=== PATIENT | female | born 1990 | race Caucasian/White ===

== ENCOUNTER 2017-10-04 12:50 | Inpatient (IN) | payer BC ==
[2017-10-04] MEDS ORDERED: Nalbuphine 20 MG/1 ML Amp IVPUSH PRN (14:02)
[2017-10-04] MEDS ORDERED: Lidocaine 1% 50 ML MDV INJECT ONE (14:02)
[2017-10-04] MEDS ORDERED: Ondansetron 4 MG/2 ML SDV IVPUSH PRN (14:02)
[2017-10-04] MEDS ORDERED: Sodium Chloride 0.9% 10 ML Syringe FLUSH PRN (14:02)
--- NOTE | 2017-10-04 14:14 | PCM.LDHP ---
L&D History of Present Illness - General Date of Service: 10/04/17 Admit Problem/Dx: Patient Status Order with Admit Dx/Problem 10/04/17 14:02 Patient Status [ADT] Routine Admission Diagnosis/Problem Admission Diagnosis/Problem Normal Source of Information: Patient History Limitations: Reports: No Limitations - History of Present Illness Introduction:: Caridad Gomez is a pleasant 27 year old with an SAMM of 09/30/17 and an estimated EGA of 40 weeks and 4 days who presents to labor and delivery with contractions occurring every 5 minutes that last approximately 1 minute in duration. She reports these contractions started at 0100 and with the onset of contractions she began to experience lower back and abdominal discomfort. She denies any radiation of the discomfort and reports the pain and pressure as mild. She denies any bloody show or fluid leakage from the vagina. Her blood type is AB negative and her antibody testing completed on 07/15/17 was found to be negative. She is rubella immune and GBS negative. She desires to have an all natural Timing/Duration: Reports: seconds: Location, : Reports: Abdomen, Lower back Quality: Reports: Dull, Pressure Severity: Mild Improves with: Reports: None Worsens with: Reports: None - Related Data Allergies/Adverse Reactions: Allergies Allergy/AdvReac Type Severity Reaction Status Date / Time No Known Allergies Allergy Verified 12/30/15 19:14 Home Medications: Home Meds Vit #105/Iron/FA/Dha [Prena1 True Combo Pack] 1 each PO 12/30/15 [ History] Doxylamine Succinate [Unisom Sleep Aid] 25 mg PO BEDTIME PRN 10/04/17 [History] Past Medical History - Past Health History Medical/Surgical History: Denies 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: Reports: Polycystic Ovaries, : 1 Para: 2 LMP (Approximate): > 3 Months Social & Family History - Family History Family Medical History: Noncontributory Endocrine/Metabolic: Reports: Other (See Below) (Maternal grandmother was diagnosed with diabetes) - Tobacco Use Smoking Status *Q: Never Smoker Second Hand Smoke Exposure: No - Caffeine Use Caffeine Use: Reports: None - Recreational Drug Use Recreational Drug Use: No H&P Review of Systems - Review of Systems: Review Of Systems: See Below General: Reports: Fatigue Pulmonary: Reports: No Symptoms Cardiovascular: Reports: No Symptoms Gastrointestinal: Reports: Abdominal Pain Genitourinary: Reports: No Symptoms Musculoskeletal: Reports: Back Pain Psychiatric: Reports: No Symptoms L&D Exam - Exam Exam: See Below - Vital Signs Weight: 161 lb - OB Specific Fundal Height In cm: 40 Contraction Duration (sec): 60 Contraction Frequency (min): 5 Movement: Active Heart Tones: Present Heart Tones per Min: 145 Heart Rate (FHR) Variability: Moderate (6-25 bmp) Presentation: Vertex - Foy Score Foy Score Effacement: >80% Foy Score Dilation: > 5 cm - Exam General: Alert, Oriented HEENT: Conjunctiva Clear, EOMI, Hearing Intact, Mucosa Moist & [place], Pupils Equal, Pupils Reactive Lungs: Clear to Auscultation, Normal Respiratory Effort Cardiovascular: Regular Rate, Regular Rhythm GI/Abdominal Exam: Normal Bowel Sounds, Soft, Non-Tender, No Organomegaly, No Distention Extremities: Normal Inspection, No Pedal Edema Skin: Warm, Dry DTR: 2+: Bicep (L), Bicep (R), Patella (L), Patella (R) Psychiatric: Alert, Normal Affect, Normal Mood Problem List Initiated/Reviewed/Updated: Yes Orders Last 24hrs: Active Orders 24 hr Category Date Time Status Patient Status [ADT] Routine ADT 10/04/17 14:02 Active Activity as Tolerated [RC] PFP Care 10/04/17 14:02 Active Communication Order [RC] ASDIRECTED Care 10/04/17 14:02 Active Heart Tones [RC] ASDIRECTED Care 10/04/17 14:03 Active Notify Provider [RC] PFP Care 10/04/17 14:02 Active Notify Provider [RC] PRN Care 10/04/17 14:02 Active Peripheral IV Care [RC] . DIRECTED Care 10/04/17 14:03 Active Vital Signs [RC] PER UNIT ROUTINE Care 10/04/17 14:02 Active Regular Diet [DIET] Diet 10/04/17 Lunch Active Lactated Ringers [Ringers, Lactated] 1,000 ml Med 10/04/17 14:15 Ordered IV ASDIRECTED Lidocaine 1% [Xylocaine 1%] Med 10/04/17 14:02 Once 10 ml INJECT ONETIME ONE Nalbuphine [Nubain] Med 10/04/17 14:02 Ordered 10 mg IVPUSH Q2H PRN Ondansetron [Zofran] Med 10/04/17 14:02 Ordered 4 mg IVPUSH Q4H PRN Oxytocin/Lactated Ringers [Pitocin in LR 10 Units/1,000 Med 10/04/17 14:15 Ordered ML] 10 unit in 1,000 ml IV .CONTINUOUS Sodium Chloride 0.9% [Saline Flush] Med 10/04/17 14:02 Ordered 10 ml FLUSH ASDIRECTED PRN Electronic Heart Tones Ext w TOCO [WOMSER] Oth 10/04/17 14:02 Ordered Routine Electronic Heart Tones Internal [WOMSER] Per Unit Oth 10/04/17 14:02 Ordered Routine Peripheral IV Insertion Adult [OM.PC] Routine Oth 10/04/17 14:02 Ordered Resuscitation Status Routine Resus Stat 10/04/17 14:02 Ordered Medication Orders Lactated Ringer's (Ringers, Lactated) 1,000 mls @ 100 mls/hr IV ASDIRECTED TATE Oxytocin/Lactated Ringer's (Pitocin In Lr 10 Units/1,000 Ml) 10 unit in 1,000 mls @ 100 mls/hr IV .CONTINUOUS TATE Lidocaine HCl (Xylocaine 1%) 10 ml INJECT ONETIME ONE Stop: 10/04/17 14:03 Nalbuphine HCl (Nubain) 10 mg IVPUSH Q2H PRN PRN Reason: Pain (moderate 4-6) Ondansetron HCl (Zofran) 4 mg IVPUSH Q4H PRN PRN Reason: Nausea/Vomiting Sodium Chloride (Saline Flush) 10 ml FLUSH ASDIRECTED PRN PRN Reason: Keep Vein Open Assessment/Plan Comment:: Assessment: 1. 40 4/7 week active labor with cervical dilation 2. Group B strep screen is negative 3. Plans to breast feed 4. Desires natural labor 5.Rubella immune Plan: 1.Anticipate normal spontaneous vaginal deliver 2. Support nursing decision 3. Natural labor
[2017-10-04] MEDS ORDERED: Lactated Ringers 1,000 ML IV SCH (14:15)
[2017-10-04] MEDS ORDERED: Oxytocin/Lactated Ringers 10 UNIT/1,000 ML BAG IV SCH (14:15)
--- NOTE | 2017-10-04 15:46 | PCM.SN ---
- Free Text/Narrative Note: Caridad is a 26-year-old 2 now para 2002 white female who is admitted in active labor with advanced cervical dilation on the afternoon of 10/04/2017. She is 40-4/7 weeks gestational age with an SAMM of 09/30/2016.. She began having contractions at approximately 0830 hrs. this a.m. This was followed by bloody show. On admission she was 6-7 cm dilated, bulging bag of su and heart tones were reassuring. She is alexander every 3-5 minutes. She progressed to complete cervical dilation by approximately 1430 hrs. She delivered a viable, ellington, male with Apgars of 9 and 9, weight of 3400 g (7 pounds 7.9 ounces) in a right occiput anterior position over an intact perineum at 1459 hrs. on 10/04/2017. Baby's name is [place]. Cord blood was obtained. The placenta delivered intact, in a Chana presentation , appeared complete and was discarded per patient desire. It had a three-vessel cord. Estimated blood loss was 100 mL. Condition: Good. Patient plans to breast- feed.
[2017-10-04] MEDS ORDERED: Benzocaine/Menthol 20%-0.5% Spray 56 GM Canister TOP PRN (16:05)
[2017-10-04] MEDS ORDERED: Acetaminophen 325 MG Tab PO PRN (16:05)
[2017-10-04] MEDS ORDERED: Ibuprofen 600 MG Tab PO PRN (16:05)
[2017-10-04] MEDS ORDERED: Lanolin 100% Cream 7 GM Tube TOP PRN (16:05)
[2017-10-04] MEDS ORDERED: Witch Hazel Medicated Pads 100/Jar TOP PRN (16:05)
[2017-10-04] MEDS ORDERED: Docusate Sodium 100 MG Cap PO PRN (16:05)
--- NOTE | 2017-10-05 08:16 | PCM.PNPP ---
- General Info Date of Service: 10/05/17 Admission Dx/Problem (Free Text): Subjective: Patient reports her pain is well controlled this AM. She is able to void and ambulate without assistance. Objective: Patient is afebrile, vital signs are stable and the uterus is slightly below the level of the umbilicus Assessment: Post day 1 Plan: Routine care will be provided and a Hgb level will be taken later today. Functional Status: Reports: Pain Controlled - Patient Data Vital Signs - Most Recent: Last Vital Signs Temp 97.7 F 10/05/17 03:59 Pulse 89 10/05/17 03:59 Resp 15 10/05/17 03:59 BP 110/78 10/05/17 03:59 Pulse Ox 97 10/05/17 03:59 Weight - Most Recent: 161 lb I&O - Last 24 Hours: Intake & Output 10/04/17 10/05/17 10/05/17 22:59 06:59 14:59 Intake Total 620 2 Balance 620 2 Lab Results - Last 24 Hours: Laboratory Results - last 24 hr 10/04/17 Range/Units 21:05 Blood Type AB NEGATIVE Gel Antibody Screen Positive Screen 0 ros/5 flds - neg RhIG Candidate? Yes Rhogam Indicated Yes, baby rh pos H Med Orders - Current: Current Medications Acetaminophen (Tylenol) 650 mg PO Q4H PRN PRN Reason: mild pain or fever Benzocaine/Menthol (Dermoplast Pain Relief [place]) 0 gm TOP ASDIRECTED PRN PRN Reason: Perineal Comfort Measure Last Admin: 10/04/17 20:49 Dose: 1 canister Docusate Sodium (Colace) 100 mg PO BID PRN PRN Reason: Constipation Emollient Ointment (Lansinoh Hpa) 0 gm TOP ASDIRECTED PRN PRN Reason: Sore Nipples Last Admin: 10/04/17 20:49 Dose: 1 tube Ibuprofen (Motrin) 600 mg PO Q4H PRN PRN Reason: Mild pain or fever Prenat Multivit/[place]/Iron/Folic Ac ( Plus Iron) 1 each PO DAILY TATE Jermaine Moeel (Tucks) 1 pad TOP ASDIRECTED PRN PRN Reason: Hemorrhoid pain Last Admin: 10/04/17 20:48 Dose: 1 tub Discontinued Medications Lactated Ringer's (Ringers, Lactated) 1,000 mls @ 100 mls/hr IV ASDIRECTED TATE Oxytocin/Lactated Ringer's (Pitocin In Lr 10 Units/1,000 Ml) 10 unit in 1,000 mls @ 100 mls/hr IV .CONTINUOUS TATE Last Admin: 10/04/17 15:00 Dose: 100 mls/hr Lidocaine HCl (Xylocaine 1%) 10 ml INJECT ONETIME ONE Stop: 10/04/17 14:03 Nalbuphine HCl (Nubain) 10 mg IVPUSH Q2H PRN PRN Reason: Pain (moderate 4-6) Ondansetron HCl (Zofran) 4 mg IVPUSH Q4H PRN PRN Reason: Nausea/Vomiting Sodium Chloride (Saline Flush) 10 ml FLUSH ASDIRECTED PRN PRN Reason: Keep Vein Open - Interaction Support Person: - Recovery Exam Fundal Tone: Firm Fundal Level: 1 Fingerbreadths Below Umbilicus Fundal Placement: Midline Lochia Amount: Small Lochia Color: Rubra/Red Perineum Description: Intact, Minimal Bruising/Swelling Episiotomy/Laceration: None Bladder Status: Nonpalpable Urinary Elimination: Voided - Plan Plan:: Assessment: 1. 40 4/7 week active labor with cervical dilation 2. Group B strep screen is negative 3. Plans to breast feed 4. Desires natural labor 5.Rubella immune Plan: 1.Anticipate normal spontaneous vaginal deliver 2. Support nursing decision 3. Natural labor
[2017-10-05] MEDS ORDERED: Prenatal Multivitamin with Calcium/Folic Acid/Iron Tab PO SCH (09:00)
[2017-10-05 12:34] VITALS: BP 119/79
--- NOTE | 2017-10-05 12:57 | PCM.DCSUM1 ---
Discharge Summary - Hospital Course Free Text/Narrative:: Caridad is a 26-year-old 2 now para 2002 white female who is admitted in active labor with advanced cervical dilation on the afternoon of 10/04/2017. She is 40-4/7 weeks gestational age with an SAMM of 09/30/2016.. She began having contractions at approximately 0830 hrs. this a.m. This was followed by bloody show. On admission she was 6-7 cm dilated, bulging bag of su and heart tones were reassuring. She is alexander every 3-5 minutes. She progressed to complete cervical dilation by approximately 1430 hrs. She delivered a viable, ellington, male with Apgars of 9 and 9, weight of 3400 g (7 pounds 7.9 ounces) in a right occiput anterior position over an intact perineum at 1459 hrs. on 10/04/2017. Baby's name is [place]. Cord blood was obtained. The placenta delivered intact, in a Chana presentation , appeared complete and was discarded per patient desire. It had a three-vessel cord. Estimated blood loss was 100 mL. Condition: Good. Patient plans to breast- feed. Postburn patient has done well. She is ambulatory well, voiding well and is having no concerns. She is desiring discharge after 24 hours of the time of delivery. - Discharge Data Discharge Date: 10/05/17 Discharge Disposition: Home, Self-Care 01 Preliminary Cause of *Q: Respiratory Failure Condition: Good - Patient Instructions Diet: Regular Diet as Tolerated (Nursing diet with increase calories and calcium as directed) Activity: As Tolerated (No intercourse or tampons until bleeding resolves) Driving: May Drive Today Showering/Bathing: May Shower (May take a bath) - Discharge Plan Home Medications: Home Meds Vit #105/Iron/FA/Dha [Prena1 True Combo Pack] 1 each PO DAILY 12/30/15 [History] Doxylamine Succinate [Unisom Sleep Aid] 25 mg PO BEDTIME PRN 10/04/17 [History] Acetaminophen [Tylenol] 650 mg PO Q4H PRN tablet 10/05/17 [Rx] Ibuprofen [IJD: Ibuprofen] 600 mg PO Q4H PRN tablet 10/05/17 [Rx] Patient Handouts: Vaginal Delivery, Care After, Challenges and Solutions Referrals: Aishwarya No MD [Primary Care Provider] - (Patient is to call clinic to set up an appointment with Dr. No.) - Discharge Summary/Plan Comment DC Time >30 min.: No Discharge Summary/Plan Comment: Discharge instructions: 1. Discharge home 2. Diet, activity and follow-up discussed with patient. Recommend nursing diet with increased calories and calcium. 3. Precautions given concern increased pain, bleeding, temperature, signs/ symptoms of DVT/PE. 4. Medications per home medication was printed, discussed with and given to the patient. 5. Return to clinic-Dr. No at [facility]-is to call for an appointment. Diagnosis: Term -delivered Condition: Good - Patient Data Vitals - Most Recent: Last Vital Signs Temp 36.7 C 10/05/17 12:09 Pulse 71 10/05/17 12:09 Resp 14 10/05/17 12:09 BP 119/79 10/05/17 12:09 Pulse Ox 97 10/05/17 12:09 Weight - Most Recent: 73.028 kg I&O - Last 24 hours: Intake & Output 10/04/17 10/05/17 10/05/17 22:59 06:59 14:59 Intake Total 620 2 Balance 620 2 Lab Results - Last 24 hrs: Laboratory Results - last 24 hr 10/04/17 Range/Units 21:05 Blood Type AB NEGATIVE Gel Antibody Screen Positive Screen 0 ros/5 flds - neg RhIG Candidate? Yes Rhogam Indicated Yes, baby rh pos H Med Orders - Current: Current Medications Acetaminophen (Tylenol) 650 mg PO Q4H PRN PRN Reason: mild pain or fever Benzocaine/Menthol (Dermoplast Pain Relief [place]) 0 gm TOP ASDIRECTED PRN PRN Reason: Perineal Comfort Measure Last Admin: 10/04/17 20:49 Dose: 1 canister Docusate Sodium (Colace) 100 mg PO BID PRN PRN Reason: Constipation Emollient Ointment (Lansinoh Hpa) 0 gm TOP ASDIRECTED PRN PRN Reason: Sore Nipples Last Admin: 10/04/17 20:49 Dose: 1 tube Ibuprofen (Motrin) 600 mg PO Q4H PRN PRN Reason: Mild pain or fever Prenat Multivit/Central Control Room Operator/Iron/Folic Ac ( Plus Iron) 1 each PO DAILY TATE Last Admin: 10/05/17 09:29 Dose: 1 each Witch Prudence (Tucks) 1 pad TOP ASDIRECTED PRN PRN Reason: Hemorrhoid pain Last Admin: 10/04/17 20:48 Dose: 1 tub Discontinued Medications Lactated Ringer's (Ringers, Lactated) 1,000 mls @ 100 mls/hr IV ASDIRECTED TATE Oxytocin/Lactated Ringer's (Pitocin In Lr 10 Units/1,000 Ml) 10 unit in 1,000 mls @ 100 mls/hr IV .CONTINUOUS TATE Last Admin: 10/04/17 15:00 Dose: 100 mls/hr Lidocaine HCl (Xylocaine 1%) 10 ml INJECT ONETIME ONE Stop: 10/04/17 14:03 Last Admin: 10/05/17 09:07 Dose: Not Given Nalbuphine HCl (Nubain) 10 mg IVPUSH Q2H PRN PRN Reason: Pain (moderate 4-6) Ondansetron HCl (Zofran) 4 mg IVPUSH Q4H PRN PRN Reason: Nausea/Vomiting Sodium Chloride (Saline Flush) 10 ml FLUSH ASDIRECTED PRN PRN Reason: Keep Vein Open *Q Meaningful Use (DIS) - VTE *Q VTE Criteria *Q: - Stroke *Q Stroke Criteria *Q: - AMI *Q AMI Criteria *Q:
== END 2017-10-05 16:20 | disposition home or self-care (01) | DRG 560 ==
LOC: JD.OB 12:50 → JD.OBCHECK 12:50 → JD.OB 14:02 → OBSVTOIN 14:59 → JD.OB 17:00
PROVIDERS: ADMIT Obstetrics & Gynecology; ATTEND Obstetrics & Gynecology
PROC: 10E0XZZ Delivery of Products of Conception, External Approach (ICD-10-PCS; principal; 2017-10-04)
PROC: 10907ZC Drainage of Amniotic Fluid, Therapeutic from Products of Conception, Via Natural or Artificial Opening (ICD-10-PCS; 2017-10-04)
DX: O69.81X0 Labor and delivery complicated by cord around neck, without compression, not applicable or unspecified (principal); Z3A.40 40 weeks gestation of pregnancy; Z37.0 Single live birth
CPT/HCPCS: 36415; 59409; 85027; A9270-GY; J2590; J2790

== ENCOUNTER 2020-06-04 11:21 | Inpatient (IN) | payer BC ==
[2020-06-04] MEDS ORDERED: Nalbuphine 10 MG/1 ML Vial IVPUSH PRN (11:53)
[2020-06-04] MEDS ORDERED: Sodium Chloride 0.9% 10 ML Syringe FLUSH PRN (11:53)
[2020-06-04] MEDS ORDERED: Acetaminophen 325 MG Tab PO PRN ×2 (11:53→12:34)
[2020-06-04] MEDS ORDERED: Lidocaine 1% 50 ML MDV INJECT ONE (11:53)
[2020-06-04] MEDS ORDERED: Ampicillin 2 GM in Sodium Chloride 0.9% 100 ML IV ONE (11:53)
[2020-06-04] MEDS ORDERED: Lactated Ringers 1,000 ML IV SCH (12:00)
[2020-06-04] MEDS ORDERED: Oxytocin/Lactated Ringers 10 UNIT/1,000 ML BAG IV SCH ×2 (12:00→12:34)
[2020-06-04] MEDS ORDERED: Ibuprofen 600 MG Tab PO PRN (12:34)
[2020-06-04] MEDS ORDERED: Hydrocortisone Acetate 25 MG Supp RECTAL PRN (12:34)
[2020-06-04] MEDS ORDERED: Benzocaine/Menthol 20%-0.5% Spray 56 GM Canister TOP PRN (12:34)
[2020-06-04] MEDS ORDERED: Witch Hazel Medicated Pads 40/Jar TOP PRN (12:34)
[2020-06-04] MEDS ORDERED: Docusate Sodium 100 MG Cap PO PRN (12:34)
[2020-06-04] MEDS ORDERED: Magnesium Hydroxide 400 MG/5 ML Susp 30 ML Cup PO PRN (12:34)
--- NOTE | 2020-06-04 12:34 | PCM.LDHP ---
L&D History of Present Illness - General Date of Service: 06/04/20 Admit Problem/Dx: Patient Status Order with Admit Dx/Problem 06/04/20 11:33 Patient Status [ADT] Routine 06/04/20 12:21 Patient Status [ADT] Routine Admission Diagnosis/Problem Admission Diagnosis/Problem Vaginal delivery Source of Information: Patient History Limitations: Reports: No Limitations - History of Present Illness Introduction:: Caridad Gomez is a 29-year-old G3 now P3 003 female who had presented to labor and delivery and advanced labor with cervix at 8 to 9 cm on arrival. She reported that her contractions started at around 5 AM this morning, 06/04/2020, but were more spread apart at that time. They became much more intense and frequent at around 10 AM. She decided to come to labor and delivery at that time. She denies any leaking of fluid or vaginal bleeding at home. She had a spontaneous rupture membranes while she was on labor and delivery. She reported good movement prior to arriving to the hospital. Timing/Duration: Reports: sudden onset (at around 5 AM), getting worse (at around 10 AM) Location, : Reports: Abdomen, Lower back, Pelvic Quality: Reports: Pressure, Throbbing Severity: Severe Improves with: Reports: None Associated Symptoms: Denies: vaginal bleeding, vaginal discharge, vaginal fluid Present Illness Comments:: Caridad Gomez is a 29-year-old G3 now P3-0-0-3 female who presented to labor and delivery in advanced labor and had normal spontaneous vaginal delivery prior to my arrival. She had routine care with Dr. White starting at 9 weeks gestational age. She did not have any significant complications during the . She received RhoGam at 28 weeks gestational age. She was GBS positive and declined any antibiotics. 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 G1: 12/31/2015, , 38 weeks 4 days, 3430 g, 7 pounds 9 ounces, female infant, no complications G2: 10/04/2017, , 40 weeks 4 days, 3402 g, 7 pounds 8 ounces, male , no complications G3: Current labs Blood type: AB- Antibody screen: Negative First trimester hematocrit/hemoglobin: 39.8%/13.6 on 11/01/2019 Platelets: 231 on 11/01/2019 Urine culture: Mixed jamil suggestive of contamination Rubella status: Immune Hepatitis B surface antigen: Negative RPR: Negative HIV: Negative Pap smear: ASCUS with negative HPV Gonorrhea: Negative Chlamydia: Negative One hour glucose tolerance test: 99 Second trimester hemoglobin: 12.7 on 03/07/2020 Platelets: 229 on 03/07/2020 GBS status: Positive - Related Data Allergies/Adverse Reactions: Allergies Allergy/AdvReac Type Severity Reaction Status Date / Time No Known Allergies Allergy Verified 12/30/15 19:14 Home Medications: Home Meds 105/Iron/Folic AC/Dha [Prena1 True Combo Pack] 1 each PO DAILY 12/30/15 [History] Doxylamine Succinate [Unisom Sleep Aid] 25 mg PO BEDTIME PRN 10/04/17 [History] Acetaminophen [Tylenol] 650 mg PO Q4H PRN tablet 10/05/17 [Rx] Ibuprofen [IJD: Ibuprofen] 600 mg PO Q4H PRN tablet 10/05/17 [Rx] Past Medical History - Past Health History Medical/Surgical History: Denies Medical/Surgical History 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: Reports: Polycystic Ovaries, : 3 Para: 3 Social & Family History - Family History Family Medical History: No Pertinent Family History Endocrine/Metabolic: Reports: Other (See Below) (Maternal grandmother was diagnosed with diabetes) - Tobacco Use Tobacco Use Status *Q: Never Tobacco User - Tobacco Core Measures Tobacco Use/Smoking Within Last 30 Days: No Smokeless Tobacco Use in Last 30 Days: No - Caffeine Use Caffeine Use: Reports: None - Alcohol Use Alcohol Use History: No - Recreational Drug Use Recreational Drug Use: No Drug Use in Last 12 Months: No - Living Situation & Occupation Living situation: Reports: , with Spouse, with Family H&P Review of Systems - Review of Systems: Review Of Systems: See Below General: Denies: Fever, Chills, Malaise, Weakness HEENT: Denies: Headaches, Rhinitis, Post Nasal Drip, Sinus Congestion, Sore Throat, Visual Changes Pulmonary: Denies: Shortness of Breath, Wheezing, Pleuritic Chest Pain, Cough Cardiovascular: Denies: Chest Pain, Palpitations, Dyspnea on Exertion, Orthopnea Gastrointestinal: Reports: Nausea (while in labor). Denies: Abdominal Pain, Constipation, Diarrhea, Vomiting Genitourinary: Denies: Dysuria, Frequency, Burning, Pain, Urgency Musculoskeletal: Reports: Back Pain (and hip pain of ) Skin: Denies: Rash, Lesions Psychiatric: Denies: Depression, Anxiety Neurological: Denies: Syncope L&D Exam - Exam Exam: See Below - Vital Signs Weight: 71.214 kg - Exam General: Alert, Oriented HEENT: Conjunctiva Clear, EOMI Neck: Supple, Trachea Midline Lungs: Clear to Auscultation, Normal Respiratory Effort Cardiovascular: Regular Rate, Regular Rhythm GI/Abdominal Exam: Soft, Non-Tender, No Distention, Other (Uterine fundus at umbilicus). No: Guarding, Rigid, Rebound Genitourinary: Normal external exam, Vaginal tears (small first degree midline perineal laceration, hemostatic and not repaired), Other (Umbilical cord coming from vaginal opening after delivery of by nursing staff and cutting umbilical cord.) Extremities: Normal Inspection, No Pedal Edema Skin: Warm, Dry, Intact Psychiatric: Alert, Normal Affect, Normal Mood - Problem List (1) 40 weeks gestation of SNOMED Code(s): 85650203 ICD Code: Z3A.40 - 40 WEEKS GESTATION OF Status: Acute Current Visit: Yes (2) GBS (group B Streptococcus carrier), +RV culture, currently SNOMED Code(s): 3426276465537, 735422336, 4031859028306 ICD Code: O99.820 - STREPTOCOCCUS B CARRIER STATE COMPLICATING Status: Acute Current Visit: Yes (3) Polycystic ovarian syndrome SNOMED Code(s): 857141924 ICD Code: E28.2 - POLYCYSTIC OVARIAN SYNDROME Status: Acute Current Visit: Yes (4) Vaginal delivery SNOMED Code(s): 153379891 ICD Code: O80 - ENCOUNTER FOR FULL-TERM UNCOMPLICATED DELIVERY Status: Acute Current Visit: Yes (5) First degree perineal laceration during delivery SNOMED Code(s): 210076237 ICD Code: O70.0 - FIRST DEGREE PERINEAL LACERATION DURING DELIVERY Status: Acute Current Visit: Yes Problem List Initiated/Reviewed/Updated: Yes Orders Last 24hrs: Active Orders 24 hr Category Date Time Status Patient Status Manage Transfer [TRANSFER] Routine ADT 06/04/20 12:24 Ordered Patient Status [ADT] Routine ADT 06/04/20 12:21 Active Activity as Tolerated [RC] PFP Care 06/04/20 11:53 Active Communication Order [RC] ASDIRECTED Care 06/04/20 11:53 Active Heart Tones [RC] ASDIRECTED Care 06/04/20 11:53 Active Non Stress Test [RC] PER UNIT ROUTINE Care 06/04/20 11:33 Active Notify Provider [RC] PFP Care 06/04/20 11:53 Active Notify Provider [RC] PRN Care 06/04/20 11:53 Active Peripheral IV Care [RC] . DIRECTED Care 06/04/20 11:53 Active Urinary Catheter Assessment [RC] ASDIRECTED Care 06/04/20 11:53 Active Vital Signs [RC] PER UNIT ROUTINE Care 06/04/20 11:33 Active Regular Diet [DIET] Diet 06/04/20 Dinner Active CBC WITH AUTO DIFF [HEME] Stat Lab 06/04/20 11:53 Ordered CORONAVIRUS COVID-19 PATTIE [MOLEC] Stat Lab 06/04/20 11:58 Ordered RAPID PLASMA REAGIN,RPR [CHEM] Routine Lab 06/04/20 11:53 Ordered Acetaminophen [TylenoL] Med 06/04/20 11:53 Active 650 mg PO Q4H PRN Ampicillin 1 gm Med 06/04/20 16:00 Active Sodium Chloride 0.9% [Normal Saline] 100 ml IV Q4H Lactated Ringers [Ringers, Lactated] 1,000 ml Med 06/04/20 12:00 Active IV ASDIRECTED Nalbuphine [Nubain] Med 06/04/20 11:53 Active 10 mg IVPUSH Q2H PRN Oxytocin/Lactated Ringers [Pitocin in LR 10 Units/1,000 Med 06/04/20 12:00 Active ML] 10 unit in 1,000 ml IV .CONTINUOUS Sodium Chloride 0.9% [Saline Flush] Med 06/04/20 11:53 Active 10 ml FLUSH ASDIRECTED PRN Electronic Heart Tones Ext w TOCO [WOMSER] Oth 06/04/20 11:53 Ordered Routine Electronic Heart Tones Internal [WOMSER] Per Unit Oth 06/04/20 11:53 Ordered Routine Peripheral IV Insertion Adult [OM.PC] Routine Oth 06/04/20 11:53 Ordered Resuscitation Status Routine Resus Stat 06/04/20 11:33 Ordered Medication Orders Acetaminophen (Tylenol) 650 mg PO Q4H PRN PRN Reason: Pain (Mild 1-3) and fever Lactated Ringer's (Ringers, Lactated) 1,000 mls @ 100 mls/hr IV ASDIRECTED TATE Ampicillin Sodium 1 gm/ Sodium (Chloride) 100 mls @ 200 mls/hr IV Q4H TATE Oxytocin/Lactated Ringer's (Pitocin In Lr 10 Units/1,000 Ml) 10 unit in 1,000 mls @ 100 mls/hr IV .CONTINUOUS TATE Nalbuphine HCl (Nubain) 10 mg IVPUSH Q2H PRN PRN Reason: Pain Sodium Chloride (Saline Flush) 10 ml FLUSH ASDIRECTED PRN PRN Reason: Keep Vein Open Assessment/Plan Comment:: Caridad Gomez is a 29-year-old G3 now P3-0-0-3 status post normal spontaneous vaginal delivery shortly after arrival to labor and delivery, PPD #0, complicated by GBS positive status and did not receive antibiotics as patient declined antibiotics and history of polycystic ovarian syndrome Admit to inpatient following normal spontaneous vaginal delivery Continue Pitocin per unit protocol following delivery of placenta and lactated Ringer's until tolerating regular diet Regular diet Vitals per unit routine Ibuprofen and Tylenol for pain control Assist with breast-feeding as needed Continue to monitor lochia Check blood type and administer RhoGam as indicated. Mother with AB- blood type and would need RhoGam injection if infant has Rh+ blood. Anticipate discharge home on day #2 Juancarlos Rose MD 12:48 PM 06/04/2020
--- NOTE | 2020-06-04 13:00 | PCM.DEL ---
L & D Note - General Info Date of Service: 06/04/20 Mother's Due Date: 05/30/20 - Delivery Note Labor: Spontaneous Delivery Outcome: Livebirth Infant Delivery Method: Spontaneous Vaginal Delivery-Single Infant Delivery Mode: Spontaneous Presentation: Vertex Anesthesia Type: None Episiotomy Type: None Laceration: 1st Degree (midline perineal laceration, hemostatic and not repaired) Placenta: Intact, Spontaneous Cord: 3 Vessels Estimated Blood Loss: 150 Resuscitation Needed: Yes : Suctioned, Bulb Syringe, Stimulated, Warmed, [place] Used, Warmer Used Provider: Juancarlos Rose Score 1 min: 8 Score 5 min: 9 Second Stage Interventions: Reports: Pushing Effectively, Pushing, Pulls Own Legs Back Delivery Comments (Free Text/Narrative):: Stage I: Caridad Gomez was admitted for advanced labor. On admission her cervix was dilated to 8 to 9 cm. She was GBS positive and declined antibiotics. She had spontaneous rupture of membranes with meconium stained fluid. Stage II: On 06/04/2020 she had a normal vaginal delivery performed by the nurse of a live female at 12:04. Apgars of 8 & 9. Weight and length unknown at time of note. Infant was delivered in vertex presentation. The cord was doubly clamped and cut. Infant was taken to the warmer for additional resuscitation. Stage III: She had a spontaneous delivery of an intact placenta in Alessandro presentation. Three vessel cord. She was given pitocin and fundal massage. She had a small first-degree midline perineal laceration that was hemostatic and not repaired. Mom and baby were stable to recovery. EBL of 150 mL. Juancarlos Rose MD 1:00 PM 06/04/2020 - General Info Date of Service: 06/04/20 - Patient Data Weight - Most Recent: 71.214 kg Med Orders - Current: Current Medications Acetaminophen (Tylenol) 650 mg PO Q6H PRN PRN Reason: mild pain or fever Benzocaine/Menthol (Dermoplast Pain Relief [place]) 0 gm TOP ASDIRECTED PRN PRN Reason: Perineal Comfort Measure Docusate Sodium (Colace) 100 mg PO BID PRN PRN Reason: Constipation Hydrocortisone Acetate (Anucort-Hc) 25 mg RECTAL BID PRN PRN Reason: Hemorrhoid pain Oxytocin/Lactated Ringer's (Pitocin In Lr 10 Units/1,000 Ml) 10 unit in 1,000 mls @ 100 mls/hr IV TITRATE TATE; Protocol Ibuprofen (Motrin) 600 mg PO Q6H PRN PRN Reason: Mild pain or fever Magnesium Hydroxide (Milk Of Magnesia) 30 ml PO BEDTIME PRN PRN Reason: Constipation Prenat Multivit/[place]/Iron/Folic Ac ( Plus Iron) 1 each PO DAILY [facility] Jermaine Foss (Tucks) 1 pad TOP ASDIRECTED PRN PRN Reason: Perineal Comfort Measure Discontinued Medications Acetaminophen (Tylenol) 650 mg PO Q4H PRN PRN Reason: Pain (Mild 1-3) and fever Lactated Ringer's (Ringers, Lactated) 1,000 mls @ 100 mls/hr IV ASDIRECTED TATE Ampicillin Sodium 2 gm/ Sodium (Chloride) 100 mls @ 200 mls/hr IV ONETIME ONE Stop: 06/04/20 12:22 Ampicillin Sodium 1 gm/ Sodium (Chloride) 100 mls @ 200 mls/hr IV Q4H TATE Oxytocin/Lactated Ringer's (Pitocin In Lr 10 Units/1,000 Ml) 10 unit in 1,000 mls @ 100 mls/hr IV .CONTINUOUS TATE Lidocaine HCl (Xylocaine 1%) 50 ml INJECT ONETIME ONE Stop: 06/04/20 11:54 Nalbuphine HCl (Nubain) 10 mg IVPUSH Q2H PRN PRN Reason: Pain Sodium Chloride (Saline Flush) 10 ml FLUSH ASDIRECTED PRN PRN Reason: Keep Vein Open - Problem List & Annotations (1) 40 weeks gestation of SNOMED Code(s): 80551457 Code(s): Z3A.40 - 40 WEEKS GESTATION OF Status: Acute Current Visit: Yes (2) GBS (group B Streptococcus carrier), +RV culture, currently SNOMED Code(s): 3336352276664, 740819324, 9625569500676 Code(s): O99.820 - STREPTOCOCCUS B CARRIER STATE COMPLICATING Status: Acute Current Visit: Yes (3) Polycystic ovarian syndrome SNOMED Code(s): 147512533 Code(s): E28.2 - POLYCYSTIC OVARIAN SYNDROME Status: Acute Current Visit: Yes (4) Vaginal delivery SNOMED Code(s): 121204659 Code(s): O80 - ENCOUNTER FOR FULL-TERM UNCOMPLICATED DELIVERY Status: Acute Current Visit: Yes (5) First degree perineal laceration during delivery SNOMED Code(s): 121820487 Code(s): O70.0 - FIRST DEGREE PERINEAL LACERATION DURING DELIVERY Status: Acute Current Visit: Yes - Problem List Review Problem List Initiated/Reviewed/Updated: Yes - My Orders Last 24 Hours: My Active Orders 06/04/20 Lunch Regular Diet [DIET] 06/04/20 11:33 Non Stress Test [RC] PER UNIT ROUTINE Vital Signs [RC] PER UNIT ROUTINE Resuscitation Status Routine 06/04/20 11:53 Activity as Tolerated [RC] PFP Communication Order [RC] ASDIRECTED Heart Tones [RC] ASDIRECTED Notify Provider [RC] PFP Notify Provider [RC] PRN Peripheral IV Care [RC] . DIRECTED Urinary Catheter Assessment [RC] ASDIRECTED CBC WITH AUTO DIFF [HEME] Stat RAPID PLASMA REAGIN,RPR [CHEM] Routine 06/04/20 11:58 CORONAVIRUS COVID-19 PATTIE [MOLEC] Stat 06/04/20 12:34 Acetaminophen [TylenoL] 650 mg PO Q6H PRN Benzocaine/Menthol [Dermoplast Pain Relief [place]] See Dose Instructions TOP ASDIRECTED PRN Docusate Sodium [Colace] 100 mg PO BID PRN Hydrocortisone Acetate [Anucort-HC] 25 mg RECTAL BID PRN Ibuprofen [Motrin] 600 mg PO Q6H PRN Magnesium Hydroxide [Milk of Magnesia] 30 ml PO BEDTIME PRN Oxytocin/Lactated Ringers [Pitocin in LR 10 Units/1,000 ML] 10 unit in 1,000 ml IV TITRATE witch Pia [Tucks] 1 pad TOP ASDIRECTED PRN Heat Therapy [OM.PC] PRN 06/04/20 12:34 Patient Status [ADT] Routine Activity as Tolerated [RC] PER UNIT ROUTINE May Shower [RC] ASDIRECTED Notify Provider Vital Signs [RC] ASDIRECTED Vital Signs [RC] 03,,15, Assess Lochia [WOMSER] Per Unit Routine Assess Uterine Involution [WOMSER] Per Unit Routine Breast Pump [WOMSER] Per Unit Routine Ice Therapy [OM.PC] Per Unit Routine Medication Administration Instruction [OM.PC] Routine Perineal Care [OM.PC] Per Unit Routine Peripheral IV Discontinue [OM.PC] Routine Sitz Bath [OM.PC] Per Unit Routine 06/05/20 09:00 Vit with Ca/FA/Iron [ Plus Iron] 1 each PO DAILY 06/05/20 12:34 Heat Therapy [OM.PC] PRN - Plan Plan:: Caridad Gomez is a 29-year-old G3 now P3-0-0-3 status post normal spontaneous vaginal delivery shortly after arrival to labor and delivery, PPD #0, complicated by GBS positive status and did not receive antibiotics as patient declined antibiotics and history of polycystic ovarian syndrome Admit to inpatient following normal spontaneous vaginal delivery Continue Pitocin per unit protocol following delivery of placenta and lactated Ringer's until tolerating regular diet Regular diet Vitals per unit routine Ibuprofen and Tylenol for pain control Assist with breast-feeding as needed Continue to monitor lochia Check blood type and administer RhoGam as indicated. Mother with AB- blood type and would need RhoGam injection if has Rh+ blood. Anticipate discharge home on day #2 Juancarlos Rose MD 1:00 PM 06/04/2020
[2020-06-04] MEDS ORDERED: Ampicillin 1 GM in Sodium Chloride 0.9% 100 ML IV SCH (16:00)
--- NOTE | 2020-06-05 10:47 | PCM.SN.2 ---
- Free Text/Narrative Note: Post Progress Note PPD #1 Subjective: Doing well overall. Ambulating without difficulty. Lochia minimal. Voiding without difficulty. Tolerating regular diet without nausea or vomiting. Pain controlled with oral medications. Breast-feeding with minimal difficulty. Objective: Vitals: Vital Signs - 24 hr 06/04/20 06/04/20 06/04/20 12:34 18:16 20:34 Temperature 36.7 C 36.4 C Temperature [ 36.9 C Tympanic] Pulse, 101 H 83 Peripheral Pulse, 100 Peripheral [ Pulse Oximetry] Respiratory 18 14 14 Rate Blood Pressure 112/79 123/74 Blood Pressure 123/78 [Right Arm] O2 Sat by Pulse 100 92 L 94 L Oximetry 06/04/20 06/05/20 06/05/20 22:55 03:31 08:22 Temperature 36.4 C 37.0 C 36.1 C Temperature [ Tympanic] Pulse, 73 64 Peripheral Pulse, 83 Peripheral [ Pulse Oximetry] Respiratory 14 14 14 Rate Blood Pressure 106/69 118/69 Blood Pressure 123/74 [Right Arm] O2 Sat by Pulse 94 L 96 Oximetry Physical Exam General: Alert and oriented, no acute distress Lungs: Clear to auscultation bilaterally Heart: Regular rate and rhythm Abdomen: Soft, minimal appropriate tenderness, non-distended, fundus midline, nontender, and 2 fingerbreadths below the umbilicus Extremities: No edema Laboratory Tests 06/04/20 06/04/20 06/04/20 Range/Units 12:09 12:49 12:49 WBC 14.98 H (3.98-10.04) K/mm3 RBC 4.61 (3.98-5.22) M/mm3 Hgb 13.4 (11.2-15.7) gm/dl Hct 41.0 (34.1-44.9) % MCV 88.9 (79.4-94.8) fl MCH 29.1 (25.6-32.2) pg MCHC 32.7 (32.2-35.5) g/dl RDW Std Deviation 43.7 (36.4-46.3) fL Plt Count 204 (182-369) K/mm3 MPV 10.2 (9.4-12.3) fl Neut % (Auto) 87.3 H (34.0-71.1) % Lymph % (Auto) 8.3 L (19.3-51.7) % [place] % (Auto) 4.0 L (4.7-12.5) % Eos % (Auto) 0 L (0.7-5.8) Baso % (Auto) 0.1 (0.1-1.2) % Neut # (Auto) 13.08 H (1.56-6.13) K/mm3 Lymph # (Auto) 1.24 (1.18-3.74) K/mm3 [place] # (Auto) 0.60 H (0.24-0.36) K/mm3 Eos # (Auto) 0.00 L (0.04-0.36) K/mm3 Baso # (Auto) 0.02 (0.01-0.08) K/mm3 RPR Non-reactive (NONREACTIVE) SARS-CoV-2 RNA (PATTIE) Negative (NEGATIVE) Blood Type Gel Antibody Screen Screen RhIG Candidate? Rhogam Indicated 06/04/20 Range/Units 17:30 WBC (3.98-10.04) K/mm3 RBC (3.98-5.22) M/mm3 Hgb (11.2-15.7) gm/dl Hct (34.1-44.9) % MCV (79.4-94.8) fl MCH (25.6-32.2) pg MCHC (32.2-35.5) g/dl RDW Std Deviation (36.4-46.3) fL Plt Count (182-369) K/mm3 MPV (9.4-12.3) fl Neut % (Auto) (34.0-71.1) % Lymph % (Auto) (19.3-51.7) % [place] % (Auto) (4.7-12.5) % Eos % (Auto) (0.7-5.8) Baso % (Auto) (0.1-1.2) % Neut # (Auto) (1.56-6.13) K/mm3 Lymph # (Auto) (1.18-3.74) K/mm3 [place] # (Auto) (0.24-0.36) K/mm3 Eos # (Auto) (0.04-0.36) K/mm3 Baso # (Auto) (0.01-0.08) K/mm3 RPR (NONREACTIVE) SARS-CoV-2 RNA (PATTIE) (NEGATIVE) Blood Type AB NEGATIVE Gel Antibody Screen Positive Screen 0 ros/5 flds - neg RhIG Candidate? Yes Rhogam Indicated Yes, baby rh pos H ASSESSMENT: 29-year-old female -0-0-3 s/p precipitous normal vaginal delivery PPD #1, complicated by GBS positive status and did not receive antibiotics as patient declined antibiotics and history of polycystic ovarian syndrome PLAN: Doing well Breast-feeding with minimal difficulty. Assist as needed Lochia minimal. Continue to monitor for appropriate lochia. Continue routine care Mother with AB- blood type and the with B+ blood type. Patient received RhoGam on PPD #0 Anticipate discharge home tomorrow for additional monitoring of due to GBS infection without patient receiving antibiotics Juancarlos Rose MD 10:46 AM 06/05/2020
[2020-06-05] MEDS: Prenatal Multivitamin with Calcium/Folic Acid/Iron Tab PO SCH (11:17)
--- NOTE | 2020-06-06 07:44 | PCM.SN.2 ---
- Free Text/Narrative Note: Post Progress Note PPD #2 Subjective: Doing well overall. Ambulating without difficulty. Lochia minimal. Voiding without difficulty. Tolerating regular diet without nausea or vomiting. Pain is minimal and not requiring medications at this time. Reports that she is having some mild cramping with breast-feeding but that is tolerable without medications. Breast-feeding with minimal difficulty. Objective: Vitals: Vital Signs - 24 hr 06/05/20 06/05/20 06/05/20 08:22 17:47 20:16 Temperature 36.1 C 37.0 C 36.9 C Pulse, 64 87 60 Peripheral Respiratory 14 14 16 Rate Blood Pressure 118/69 118/82 118/68 O2 Sat by Pulse 96 96 97 Oximetry 06/06/20 02:40 Temperature 36.6 C Pulse, 62 Peripheral Respiratory 14 Rate Blood Pressure 108/61 O2 Sat by Pulse 97 Oximetry Physical Exam General: Alert and oriented, no acute distress Lungs: Clear to auscultation bilaterally Heart: Regular rate and rhythm Abdomen: Soft, minimal appropriate tenderness, non-distended, fundus midline, nontender, and 2 fingerbreadths below the umbilicus Extremities: No edema ASSESSMENT: 29-year-old female -0-0-3 s/p precipitous normal vaginal delivery PPD #2, complicated by GBS positive status and did not receive antibiotics as patient declined antibiotics and history of polycystic ovarian syndrome PLAN: Doing well Breast-feeding with minimal difficulty. Assist as needed Lochia minimal. Continue to monitor for appropriate lochia. Continue routine care Mother with AB- blood type and the with B+ blood type. Patient received RhoGam on PPD #0 Discharge home today Juancarlos Rose MD 7:42 AM 06/06/2020
--- NOTE | 2020-06-06 07:46 | PCM.DCSUM1 ---
Discharge Summary - Hospital Course Free Text/Narrative:: - General Info Date of Service: 06/04/20 Mother's Due Date: 05/30/20 - Delivery Note Labor: Spontaneous Delivery Outcome: Livebirth Infant Delivery Method: Spontaneous Vaginal Delivery-Single Delivery Mode: Spontaneous Presentation: Vertex Anesthesia Type: None Episiotomy Type: None Laceration: 1st Degree (midline perineal laceration, hemostatic and not repaired) Placenta: Intact, Spontaneous Cord: 3 Vessels Estimated Blood Loss: 150 Resuscitation Needed: Yes : Suctioned, Bulb Syringe, Stimulated, Warmed, [place] Used, Warmer Used Provider: Juancarlos Rose Score 1 min: 8 Score 5 min: 9 Second Stage Interventions: Reports: Pushing Effectively, Pushing, Pulls Own Legs Back Delivery Comments (Free Text/Narrative):: Stage I: Caridad Gomez was admitted for advanced labor. On admission her cervix was dilated to 8 to 9 cm. She was GBS positive and declined antibiotics. She had spontaneous rupture of membranes with meconium stained fluid. Stage II: On 06/04/2020 she had a normal vaginal delivery performed by the nurse of a live female at 12:04. Apgars of 8 & 9. Weight and length unknown at time of note. Infant was delivered in vertex presentation. The cord was doubly clamped and cut. was taken to the warmer for additional resuscitation. Stage III: She had a spontaneous delivery of an intact placenta in Alessandro presentation. Three vessel cord. She was given pitocin and fundal massage. She had a small first-degree midline perineal laceration that was hemostatic and not repaired. Mom and baby were stable to recovery. EBL of 150 mL. Diagnosis: Stroke: No - Discharge Data Discharge Date: 06/06/20 Discharge Disposition: Home, Self-Care 01 Condition: Good - Referral to Home Health Primary Care Physician: Aishwarya No MD - Discharge Diagnosis/Problem(s) (1) 40 weeks gestation of SNOMED Code(s): 19912489 ICD Code: Z3A.40 - 40 WEEKS GESTATION OF Status: Acute Current Visit: Yes (2) GBS (group B Streptococcus carrier), +RV culture, currently SNOMED Code(s): 3026961203915, 077361125, 1624702896264 ICD Code: O99.820 - STREPTOCOCCUS B CARRIER STATE COMPLICATING Status: Acute Current Visit: Yes (3) Polycystic ovarian syndrome SNOMED Code(s): 099112096 ICD Code: E28.2 - POLYCYSTIC OVARIAN SYNDROME Status: Acute Current Visit: Yes (4) Vaginal delivery SNOMED Code(s): 484528977 ICD Code: O80 - ENCOUNTER FOR FULL-TERM UNCOMPLICATED DELIVERY Status: Acute Current Visit: Yes (5) First degree perineal laceration during delivery SNOMED Code(s): 092169901 ICD Code: O70.0 - FIRST DEGREE PERINEAL LACERATION DURING DELIVERY Status: Acute Current Visit: Yes - Patient Summary/Data Complications: delivery coordinator due to precipitous labor Consults: None Hospital Course: Craidad Gomez was admitted for advanced labor. On admission her cervix was dil ated to 8-9 cm. She was GBS positive and declined antibiotics. She had spontaneous rupture of membranes with meconium stained fluid. She quickly progressed to complete and began pushing. On 06/04/2020 she had a precipitous normal vaginal delivery of a live female at 12:04. Apgars of 8 and 9. Weight of 3810 g (8 pounds 6.4 ounces). Her course was uneventful. Her pain was well controlled and she had minimal lochia. She was ambulating, tolerating a regular diet and voiding normally. She was breast-feeding with minimal difficulty. She was afebrile and her hematocrit was 41.0 on PPD #0 after delivery. She desired to be discharged home on the morning of PPD #2. Her blood type is AB- and has B+ blood type. Patient received RhoGam on PPD #0. - Patient Instructions Diet: Regular Diet as Tolerated Activity: Apply Ice, As Tolerated Activity, Other: Nothing in the vagina for 6 weeks Driving: May Drive Today Showering/Bathing: May Shower Notify Provider of: Fever, Increased Pain, Swelling and Redness, Drainage, Nausea and/or Vomiting Other/Special Instructions: Please contact your physician's office if you have heavy vaginal bleeding enough to soak a pad in less than an hour for several hours. Monitor for any signs of an infection in the breasts with severe pain or redness of the breast. - Discharge Plan *PRESCRIPTION DRUG MONITORING PROGRAM REVIEWED*: Not Applicable *COPY OF PRESCRIPTION DRUG MONITORING REPORT IN PATIENT NKECHI: Not Applicable Home Medications: Home Meds 105/Iron/Folic AC/Dha [Prena1 True Combo Pack] 1 each PO DAILY 12/30/15 [History] Doxylamine Succinate [Unisom Sleep Aid] 25 mg PO BEDTIME PRN 10/04/17 [History] Acetaminophen [Tylenol] 650 mg PO Q6H PRN tablet 06/06/20 [Rx] Benzocaine/Menthol [Dermoplast Pain Relief [place]] 1 spray TOP ASDIRECTED PRN canister 06/06/20 [Rx] Docusate Sodium [Colace] 100 mg PO BID PRN cap 06/06/20 [Rx] Hydrocortisone Acetate [Anucort-HC] 25 mg RECTAL BID PRN supp 06/06/20 [Rx] Ibuprofen [Motrin] 600 mg PO Q6H PRN tablet 06/06/20 [Rx] witch Pia [Tucks] 1 pad TOP ASDIRECTED PRN pad 06/06/20 [Rx] Patient Handouts: Care of a Perineal Tear, Care After Vaginal Delivery Referrals: Aishwarya No MD [Primary Care Provider] - (Follow-up in 3 to 6 weeks for routine visit or earlier as needed.) - Discharge Summary/Plan Comment DC Time >30 min.: No - Patient Data Vitals - Most Recent: Last Vital Signs Temp 36.6 C 06/06/20 02:40 Pulse 62 06/06/20 02:40 Resp 14 06/06/20 02:40 BP 108/61 06/06/20 02:40 Pulse Ox 97 06/06/20 02:40 Weight - Most Recent: 71.214 kg I&O - Last 24 hours: Intake & Output 06/05/20 06/06/20 06/06/20 22:59 06:59 14:59 Intake Total 200 Balance 200 Med Orders - Current: Current Medications Acetaminophen (Tylenol) 650 mg PO Q6H PRN PRN Reason: mild pain or fever Benzocaine/Menthol (Dermoplast Pain Relief [place]) 0 gm TOP ASDIRECTED PRN PRN Reason: Perineal Comfort Measure Last Admin: 06/04/20 13:29 Dose: 1 canister Documented by: Docusate Sodium (Colace) 100 mg PO BID PRN PRN Reason: Constipation Hydrocortisone Acetate (Anucort-Hc) 25 mg RECTAL BID PRN PRN Reason: Hemorrhoid pain Oxytocin/Lactated Ringer's (Pitocin In Lr 10 Units/1,000 Ml) 10 unit in 1,000 mls @ 100 mls/hr IV TITRATE TATE; Protocol Ibuprofen (Motrin) 600 mg PO Q6H PRN PRN Reason: Mild pain or fever Magnesium Hydroxide (Milk Of Magnesia) 30 ml PO BEDTIME PRN PRN Reason: Constipation Prenat Multivit/[place]/Iron/Folic Ac ( Plus Iron) 1 each PO DAILY TATE Last Admin: 06/05/20 11:17 Dose: Not Given Documented by: Jermaine Foss ([facility]) 1 pad TOP ASDIRECTED PRN PRN Reason: Perineal Comfort Measure Last Admin: 06/04/20 13:29 Dose: 1 tub Documented by: Discontinued Medications Acetaminophen (Tylenol) 650 mg PO Q4H PRN PRN Reason: Pain (Mild 1-3) and fever Lactated Ringer's (Ringers, Lactated) 1,000 mls @ 100 mls/hr IV ASDIRECTED TATE Ampicillin Sodium 2 gm/ Sodium (Chloride) 100 mls @ 200 mls/hr IV ONETIME ONE Stop: 06/04/20 12:22 Last Admin: 06/04/20 13:31 Dose: Not Given Documented by: Ampicillin Sodium 1 gm/ Sodium (Chloride) 100 mls @ 200 mls/hr IV Q4H TATE Oxytocin/Lactated Ringer's (Pitocin In Lr 10 Units/1,000 Ml) 10 unit in 1,000 mls @ 100 mls/hr IV .CONTINUOUS TATE Last Admin: 06/04/20 13:30 Dose: 100 mls/hr Documented by: Lidocaine HCl (Xylocaine 1%) 50 ml INJECT ONETIME ONE Stop: 06/04/20 11:54 Last Admin: 06/04/20 13:31 Dose: Not Given Documented by: Nalbuphine HCl (Nubain) 10 mg IVPUSH Q2H PRN PRN Reason: Pain Sodium Chloride (Saline Flush) 10 ml FLUSH ASDIRECTED PRN PRN Reason: Keep Vein Open
[2020-06-06 08:16] VITALS: BP 123/85; PULSE 80
[2020-06-06] MEDS: Prenatal Multivitamin with Calcium/Folic Acid/Iron Tab PO SCH (09:31)
== END 2020-06-06 12:20 | disposition home or self-care (01) | DRG 560 ==
LOC: JD.OB 11:21 → JD.OBCHECK 11:21 → JD.OB 11:34 → JD.OBCHECK 11:34 → OBSVTOIN 12:04 → JD.OB 12:05 → UNDOADMOB 12:21 → JD.OB 12:21
PROVIDERS: ADMIT Obstetrics & Gynecology; ATTEND Obstetrics & Gynecology
PROC: 4A1HXCZ Monitoring of Products of Conception, Cardiac Rate, External Approach (ICD-10-PCS; principal; 2020-06-04)
PROC: 10E0XZZ Delivery of Products of Conception, External Approach (ICD-10-PCS; principal; 2020-06-04)
PROC: 3E0234Z Introduction of Serum, Toxoid and Vaccine into Muscle, Percutaneous Approach (ICD-10-PCS; principal; 2020-06-04)
DX: O48.0 Post-term pregnancy (principal); Z3A.40 40 weeks gestation of pregnancy; Z37.0 Single live birth; O99.824 Streptococcus B carrier state complicating childbirth; O70.0 First degree perineal laceration during delivery; O77.0 Labor and delivery complicated by meconium in amniotic fluid; O26.893 Other specified pregnancy related conditions, third trimester; Z67.31 Type AB blood, Rh negative; Z79.899 Other long term (current) drug therapy; Z20.828 Contact with and (suspected) exposure to other viral communicable diseases; Z87.42 Personal history of other diseases of the female genital tract; O62.3 Precipitate labor
CPT/HCPCS: 36415; 36430; 59025; 59409; 85025; 85461; 86592; 86850; 86870; 86900; 86901; A9270-GY; J2590; J2790; U0002

== ENCOUNTER 2022-03-11 18:25 | Inpatient (IN) | payer BC ==
[2022-03-11] MEDS ORDERED: Sodium Chloride 0.9% 10 ML Syringe FLUSH PRN (18:51)
[2022-03-11] MEDS ORDERED: Nalbuphine HCl 10 MG/ 1ML Amp IVPUSH PRN (18:51)
[2022-03-11] MEDS ORDERED: Lactated Ringers 1,000 ML IV SCH (19:00)
[2022-03-11] MEDS ORDERED: Oxytocin/Lactated Ringers 10 UNIT/1,000 ML BAG IV SCH (19:00)
[2022-03-11] MEDS ORDERED: Docusate Sodium 100 MG Cap PO PRN (21:06)
[2022-03-11] MEDS ORDERED: Witch Hazel Medicated Pads 40/Jar TOP PRN (21:06)
[2022-03-11] MEDS ORDERED: Ibuprofen 600 MG Tab PO PRN (21:06)
[2022-03-11] MEDS ORDERED: Benzocaine/Menthol 20%-0.5% Spray 78 GM Cannister TOP PRN (21:06)
[2022-03-11] MEDS ORDERED: Simethicone 80 MG Tab.Chew PO PRN (21:06)
[2022-03-11] MEDS ORDERED: Acetaminophen 325 MG Tab PO PRN (21:06)
[2022-03-11] MEDS: Sodium Chloride 0.9% 10 ML Syringe FLUSH SCH (23:09)
[2022-03-12] MEDS ORDERED: DOXYLAMINE SUCCINATE 25 MG PO SCH (09:00)
[2022-03-12] MEDS ORDERED: Prenatal Multivitamin with Calcium/Folic Acid/Iron Tab PO SCH (09:00)
[2022-03-12] MEDS: Sodium Chloride 0.9% 10 ML Syringe FLUSH SCH (11:12)
[2022-03-12 22:19] VITALS: BP 113/81; PULSE 73
== END 2022-03-12 22:02 | disposition home or self-care (01) | DRG 560 ==
LOC: JD.OBCHECK 18:25 → JD.OB 18:30 → JD.OBCHECK 19:59 → JD.OB 20:00 → OBSVTOIN 20:50 → JD.OB 20:51
PROVIDERS: ADMIT Obstetrics & Gynecology; ATTEND Obstetrics & Gynecology
PROC: 10E0XZZ Delivery of Products of Conception, External Approach (ICD-10-PCS; principal; 2022-03-11)
PROC: 10907ZC Drainage of Amniotic Fluid, Therapeutic from Products of Conception, Via Natural or Artificial Opening (ICD-10-PCS; principal; 2022-03-11)
DX: O77.0 Labor and delivery complicated by meconium in amniotic fluid (principal); Z3A.40 40 weeks gestation of pregnancy; Z37.0 Single live birth
CPT/HCPCS: 36415; 59025; 59409; 85025; 86592; J2590